=== PATIENT | male | born 1960 | race Hispanic/Latino ===

== ENCOUNTER → 2018-10-28 | Outpatient (CLI) | payer OTHER | END | disposition home or self-care (01) | LOC: RAH 08:44 | PROVIDERS: ATTEND Family Medicine | DX: B19.10 Unspecified viral hepatitis B without hepatic coma (principal) | CPT/HCPCS: 76700 ==

== ENCOUNTER → 2019-07-29 | Outpatient (CLI) | payer OTHER | END | disposition home or self-care (01) | LOC: RAH 11:57 | PROVIDERS: ATTEND Family Medicine | DX: Z11.1 Encounter for screening for respiratory tuberculosis (principal) | CPT/HCPCS: 71046 ==